=== PATIENT | female | born 1985 | race African-American/Black ===

== ENCOUNTER 2016-12-05 22:18 | Emergency (ER) | payer MEDICAID ==
[2016-12-05 22:35] VITALS: BP 138/105
[2016-12-05] MEDS ORDERED: PENI500T PO (23:02)
[2016-12-05] MEDS ORDERED: HYDR-2672 PO (23:02)
--- NOTE | 2016-12-05 23:02 | PHYS DOC ---
Past Medical History Past Medical History: Hypertension Past Surgical History: Cholecystectomy, Tubal ligation Additional Past Surgical Histo: BACK SURGERY,HERNIA, Alcohol Use: Occasionally Drug Use: Marijuana Adult General Chief Complaint Chief Complaint: DENTAL PROBLEM HPI HPI Patient is a 31 year old female who presents with complaint of dental pain. Patient states that she has been struggling with a bad tooth in the left jaw for several weeks. Patient states that she was biting down on a chip earlier today and her tooth broke. Patient states that she removed the tooth as well as most of the root using tweezers. Patient is complaining of severe 10 out of 10 pain in her jaw. Patient denies any fevers. Patient states that she has been noticing worsening swelling along the left side of her jaw. Review of Systems Review of Systems Constitutional: Denies fever or chills [] Eyes: Denies change in visual acuity, redness, or eye pain [] HENT: Left jaw swelling, dental pain, denies nasal congestion or sore throat [] Respiratory: Denies cough or shortness of breath [] Cardiovascular: Denies chest pain or edema [] GI: Denies abdominal pain, nausea, vomiting, bloody stools or diarrhea [] Musculoskeletal: Denies back pain or joint pain [] Integument: Denies rash or skin lesions [] Neurologic: Denies headache, focal weakness or sensory changes [] Current Medications Current Medications Current Medications Medications (Trade) Dose Ordered Sig/Waqas Start Time Stop Time Status Last Admin Dose Admin Morphine Sulfate 5 mg 1X ONCE 12/05/16 23:15 12/05/16 23:16 Ondansetron HCl (Zofran Odt) 4 mg 1X ONCE 12/05/16 23:15 12/05/16 23:16 Penicillin V Potassium (Veetid) 500 mg 1X ONCE 12/05/16 23:15 12/05/16 23:16 Allergies Allergies Allergies Coded Allergies Type Severity Reaction Last Updated Verified No Known Drug Allergies 12/05/16 No Physical Exam Physical Exam Constitutional: Alert, afebrile, appears in moderate to severe discomfort. [] HENT: Normocephalic, atraumatic, mild to moderate soft tissue swelling along left jaw, bilateral external ears normal, oropharynx moist, exposed root with visible clot and gingival swelling in location of tooth #19, no oral exudates, nose normal. [] Eyes: PERRLA, EOMI, conjunctiva normal, no discharge. [] Neck: Normal range of motion, no tenderness, supple, no stridor. [] Cardiovascular:Heart rate regular rhythm, no murmur [] Lungs & Thorax: Bilateral breath sounds clear to auscultation [] Abdomen: Bowel sounds normal, soft, no tenderness, no masses, no pulsatile masses. [] Neurologic: Alert and oriented X 3, normal motor function, normal sensory function, no focal deficits noted. [] Current Patient Data Vital Signs Vital Signs Date Time Temp Pulse Resp B/P Pulse Ox O2 Delivery O2 Flow Rate FiO2 12/05/16 22:35 98.1 87 24 100 Room Air 98.1 EKG EKG Not performed [] Radiology/Procedures Radiology/Procedures Not performed [] Course & Med Decision Making Course & Med Decision Making Pertinent Labs and Imaging studies reviewed. (See chart for details) Patient was given IM morphine, Zofran ODT, and penicillin VK in the emergency department. Patient will be discharged with prescriptions for hydrocodone and penicillin VK. Advised follow-up with the patient's dentist in the next 3-5 days. Eyes return emergency department for any worsening symptoms. Patient voiced understanding and in agreement with treatment plan. Dragon Disclaimer Dragon Disclaimer This electronic medical record was generated, in whole or in part, using a voice recognition dictation system. Departure Departure Impression: Primary Impression: Dental infection Disposition: 01 HOME, SELF-CARE Condition: IMPROVED Patient Instructions: Dental Caries Additional Instructions: Follow-up with a dentist in the next 3-5 days. Be sure to complete the antibiotic medication prescribed. Return to the emergency department for any worsening symptoms. Scripts Hydrocodone Bit/Acetaminophen (Hydrocodone-Apap 10-325 )1 Each Tablet1 Tab PO PRN Q6HRS PRN PAIN #20 TAB Ref 0 Prov:ADELITA HAHN MD 12/05/16 Penicillin V Potassium 500 Mg Tablet1 Tab PO QID #40 TAB Prov:ADELITA HAHN MD 12/05/16 ADELITA HAHN MD Dec 05, 2016 23:02
[2016-12-05] MEDS ORDERED: MORPHINE SULFATE 10 MG/ML VIAL. IM ONE (23:15)
[2016-12-05] MEDS ORDERED: PENICILLIN V K 250 MG TABLET. PO ONE (23:15)
[2016-12-05] MEDS ORDERED: ONDANSETRON ODT 4 MG TAB.RAPDIS PO ONE (23:15)
== END 2016-12-05 23:24 | disposition home or self-care (01) ==
LOC: ER 22:18
DX: K04.7 Periapical abscess without sinus (principal); I10 Essential (primary) hypertension; F12.10 Cannabis abuse, uncomplicated
CPT/HCPCS: 96372; 99283; J2270; Q0162

== ENCOUNTER 2018-05-21 23:09 | Emergency (ER) | payer SELFPAY ==
[~2018-05-21] VITALS: Ht 162.6 cm; Wt 76.7 kg
[~2018-05-21 23:09] MED LIST: HYDR-2766 PO; PENI500T PO
[2018-05-21 23:55] VITALS: BP 141/86
[2018-05-22] MEDS: predniSONE 20 MG TABLET PO ONE (00:31)
[2018-05-22] MEDS: KETOROLAC 30 MG/ML VIAL. IM ONE (00:32)
[2018-05-22] MEDS: IPRATRPIUM/ALBUTEROL 0.5/2.5MG 3 ML NEBU. NEB ONE (00:45)
[2018-05-22] MEDS ORDERED: PRED50TA PO (00:53)
[2018-05-22] MEDS ORDERED: DOXY100C2 PO (00:53)
[2018-05-22] MEDS ORDERED: ALBU2.5V14 NEB (00:53)
--- NOTE | 2018-05-22 01:43 | PHYS DOC ---
Past Medical History Past Medical History: Asthma, Bipolar, Hypertension Additional Past Medical Histor: NON-COMPLIANT W/ BI-POLAR Rx Past Surgical History: Cholecystectomy, Tubal ligation Additional Past Surgical Histo: BACK SURGERY,HERNIA, Alcohol Use: Occasionally Drug Use: Marijuana Adult General Chief Complaint Chief Complaint: ASTHMA HPI HPI Patient is a 32 year old female is presenting with cough shortness of breath dry cough mostly sinus congestion sore throat sick contacts at home she thinks she is probably had a cold History of asthma her albuterol is really not working that well Review of Systems Review of Systems Constitutional: Denies fever or chills [] Eyes: Denies change in visual acuity, redness, or eye pain [] HENT: Denies nasal congestion or sore throat [] Respiratory: Denies cough or shortness of breath [] Cardiovascular: No additional information not addressed in HPI [] Musculoskeletal: Denies back pain or joint pain [] Integument: Denies rash or skin lesions [] Neurologic: Denies headache, focal weakness or sensory changes [] All other systems were reviewed and found to be within normal limits, except as documented in this note. Current Medications Current Medications Current Medications Medications (Trade) Dose Ordered Sig/Waqas Start Time Stop Time Status Last Admin Dose Admin Albuterol/ Ipratropium (Duoneb) 3 ml 1X ONCE 05/22/18 00:30 05/22/18 00:31 DC 05/22/18 00:45 3 ML Ketorolac Tromethamine (Toradol 30mg Vial) 30 mg 1X ONCE 05/22/18 00:30 05/22/18 00:31 DC 05/22/18 00:32 30 MG Prednisone (Prednisone) 50 mg 1X ONCE 05/22/18 00:30 05/22/18 00:31 DC 05/22/18 00:31 50 MG Allergies Allergies Allergies Coded Allergies Type Severity Reaction Last Updated Verified amoxicillin Allergy Intermediate Rash 05/22/18 Yes Physical Exam Physical Exam Constitutional: Well developed, well nourished, no acute distress, non-toxic appearance. [] HENT: Normocephalic, atraumatic, bilateral external ears normal, oropharynx moist, no oral exudates, nose normal. []No oral exudates Eyes: PERRLA, EOMI, conjunctiva normal, no discharge. [] Neck: Normal range of motion, no tenderness, supple, no stridor. [] Cardiovascular:Heart rate regular rhythm, no murmur Lungs: Faint wheezing noted bilaterally. Abdomen: Bowel sounds normal, soft, no tenderness, no masses, no pulsatile masses. [] Skin: Warm, dry, no erythema, no rash. [] Back: No tenderness, no CVA tenderness. [] Extremities: No tenderness, no cyanosis, no clubbing, ROM intact, no edema. [] Neurologic: Alert and oriented X 3, normal motor function, normal sensory function, no focal deficits noted. [] Psychologic: Affect normal, judgement normal, mood normal. [] Current Patient Data Vital Signs Vital Signs Date Time Temp Pulse Resp B/P (MAP) Pulse Ox O2 Delivery O2 Flow Rate FiO2 05/22/18 00:46 100 Room Air 05/21/18 23:55 98.8 60 20 141/86 (104) 98.8 EKG EKG [] Radiology/Procedures Radiology/Procedures [] Impressions: Mitral patient chest x-ray was negative acute Course & Med Decision Making Course & Med Decision Making Pertinent Labs and Imaging studies reviewed. (See chart for details) []32-year-old female with history of asthma and some URI symptoms present with likely mild to moderate asthma exacerbation patient was given nebulizer therapy with near resolution of her wheezing. Prescription for prednisone and given her significant sinus congestion and worsening symptoms over the last few days prescription for antibiotics as well as albuterol nebulizer refill return precautions discussed no evidence of pneumonia on chest x-ray. Dragon Disclaimer Dragon Disclaimer This electronic medical record was generated, in whole or in part, using a voice recognition dictation system. Departure Departure Impression: Primary Impression: Asthma Disposition: HOME, SELF-CARE Condition: STABLE Patient Instructions: Asthma, Adult Scripts Albuterol Sulfate (ALBUTEROL SULFATE CONC NEB SOLN) 2.5 Mg/0.5 Ml Vial.neb 1 VIAL NEB Q6HRS, #60 VIAL 0 Refills Prov: NATASHA SOSA MD 05/22/18 Doxycycline Hyclate (DOXYCYCLINE HYCLATE) 100 Mg Capsule 1 CAP PO BID, #14 CAP Prov: NATASHA SOSA MD 05/22/18 Prednisone (PREDNISONE) 50 Mg Tablet 1 TAB PO DAILY, #5 TAB Prov: NATASHA SOSA MD 05/22/18 NATASHA SOSA MD May 22, 2018 01:43
--- NOTE | 2018-05-22 08:18 | RAD ---
Chest radiograph 05/22/2018 12:34 AM INDICATION: Cough, asthma COMPARISON: None available TECHNIQUE: Portable upright frontal view of the chest is provided. FINDINGS: The cardiomediastinal silhouette is within normal limits. There are no pleural effusions. There is no pulmonary vascular congestion. There is no pneumothorax. The lungs are clear. No significant osseous abnormality is identified. IMPRESSION: No acute cardiopulmonary process. Electronically signed by: Paula Mcfarland MD (05/22/2018 8:14 AM) [id number]
== END 2018-05-22 01:02 | disposition home or self-care (01) ==
LOC: ER 23:09
DX: J45.909 Unspecified asthma, uncomplicated (principal); F31.9 Bipolar disorder, unspecified; I10 Essential (primary) hypertension; Z90.49 Acquired absence of other specified parts of digestive tract; Z98.51 Tubal ligation status; Z88.1 Allergy status to other antibiotic agents
CPT/HCPCS: 71045; 94640; 96372; 99284; J1885; J7512; J7620